=== PATIENT | female | born 1990 | race Caucasian/White ===

== ENCOUNTER → 2018-04-28 | Outpatient (CLI) | payer BC ==
--- NOTE | 2018-04-28 15:36 | XCELERA REPORT ---
[address] [place] [facility] [address] Lower Extremity Venous Evaluation Procedure: Color flow and duplex imaging of the veins of the left lower extremity as well as the right Common Femoral vein. Right Sided Venous Evaluation The right common femoral vein is fully compressible. Spontaneous and phasic flow is present in the right common femoral vein. Left Sided Venous Evaluation Normal vessel filling wall to wall, compression and augmentation as well as Colour flow down to the infrageniculate veins. Interpretation Summary No duplex evidence of DVT or obstruction in the left lower extremity nor in the right Common Femoral vein. Name: VASHTI LABOY Age: 28 yrs Gender: Female : 1990 Patient Status: Outpatient Patient Location: Study Date: 04/28/2018 02:40 PM Reason For Study: LEFT LEG SWELLING Ordering Physician: ANA MARIA PARKINSON Performed By: Dayanna Guzmán : ANA MARIA PARKINSON > Chuck Rosas
== END ==
LOC: SP 12:48
PROVIDERS: ATTEND Nurse Practitioner Family
DX: M79.89 Other specified soft tissue disorders (principal)
CPT/HCPCS: 93971